=== PATIENT | male | born 1970 | race Hispanic/Latino ===

== ENCOUNTER 2022-07-06 17:38 | Inpatient (IN) | payer BC, OTHER ==
[~2022-07-06] VITALS: Ht 170.2 cm; Wt 81.2 kg
[~2022-07-06 17:38] MED LIST: GLIP5TAB11 PO; LISI5TAB21 PO; METF-446 PO; PRAV40TA3 PO
[2022-07-06] MEDS ORDERED: BIVALIRUDIN 250 MG/VIAL IV ONE (18:13)
[2022-07-06] MEDS ORDERED: IOHEXOL-350 50ML VIAL IV ONE (18:13)
[2022-07-06] MEDS ORDERED: HEPARIN 10,000 UNIT/10ML (1,000 UNIT/ML) VIAL ONE (18:13)
[2022-07-06] MEDS ORDERED: NITROGLYCERIN 50MG VIAL ONE (18:13)
[2022-07-06] MEDS ORDERED: IOHEXOL 350 MG/ML 100ML INFUS..BTL IV ONE (18:13)
[2022-07-06] MEDS ORDERED: LIDOCAINE HCL 400MG/20ML VIAL ONE (18:14)
[2022-07-06] MEDS ORDERED: MEPERIDINE-PF 25 MG/ML SYG ONE (18:19)
[2022-07-06] MEDS ORDERED: MIDAZOLAM HCL 1 MG/ML 2ML VIAL ONE (18:19)
[2022-07-06] MEDS ORDERED: FENTANYL CITRATE PF 50 MCG/1 ML 2ML VIAL ONE (18:21)
[2022-07-06] MEDS ORDERED: 0.9%NACL 1000ML 1,000 ML IV SCH (20:00)
[2022-07-06] MEDS ORDERED: DEXTROSE 50%-WATER 50 ML DISP.SYRIN IV PRN (20:00)
[2022-07-06] MEDS ORDERED: ATOR40TA71 PO (20:58)
[2022-07-06] MEDS ORDERED: BYDUREON (20:58)
[2022-07-06] MEDS ORDERED: MAG/ALUM/SIMETH 30 ML UDCUP PO PRN (21:00)
[2022-07-06] MEDS ORDERED: ONDANSETRON 4MG INJ IV PRN (21:00)
[2022-07-06] MEDS ORDERED: DiphenhydrAMINE HCL 50 MG/ML VIAL IV PRN (21:00)
[2022-07-06] MEDS: METOPROLOL TARTRATE 25 MG TAB PO SCH (21:00)
[2022-07-06] MEDS ORDERED: ACETAMINOPHEN 325 MG TAB PO PRN ×2 (21:00)
[2022-07-06] MEDS ORDERED: HYDROCODONE/ACETAMINOPHEN 5/325 MG TAB PO PRN (21:00)
[2022-07-06] MEDS ORDERED: LACTULOSE 20 GM/30 ML UDCUP PO PRN (21:00)
[2022-07-06] MEDS: INSULIN HUMULIN R 100 UNIT/ML 3ML SQ SCH (21:00)
[2022-07-06 21:02] LABS: BASOPHILS % (AUTO) 0.3 % (0.0-5.0); EOSINOPHILS % (AUTO) 0.2 % (0.0-8.0); HEMATOCRIT 46.6 % (42-54); LYMPHOCYTES % (AUTO) 11.9 % (21.0-51.0); MEAN CORPUSCULAR HEMOGLOBIN 28.7 pg (27.0-33.0); MEAN CORPUSCULAR HGB CONC 33.3 g/dL (32.0-36.0); MEAN CORPUSCULAR VOLUME 86.1 fL (79-99); MONOCYTES % (AUTO) 5.3 % (3.0-13.0); NEUTROPHILS % (AUTO) 81.7 % (40.0-77.0); PLATELET COUNT (AUTO) 263 K/uL (130-400); RED BLOOD CELL COUNT(AUTO) 5.41 MIL/uL (4.50-6.20); WHITE BLOOD COUNT (AUTO) 12.2 K/uL (4.8-10.8)
[2022-07-06 21:21] LABS: B-TYPE NATRIURETIC PEPTIDE 62 pg/mL (0-100)
[2022-07-06 21:24] LABS: CREATININE 1.1 mg/dL (0.5-1.5); POTASSIUM 4.3 mmol/L (3.5-5.1); THYROID STIMULATING HORMONE 0.87 uIU/mL (0.36-3.74)
[2022-07-06] MEDS: MORPHINE 4 MG SYG IV PRN ×2 (22:00→23:33)
[2022-07-06] MEDS ORDERED: HEPARIN 25,000 UNITS/250ML D5W 250 ML IV ONE (22:18)
[2022-07-06] MEDS ORDERED: NITROGLYCERIN 50MG/D5W 250ML 1 BOT ONE (22:19)
[2022-07-06] MEDS ORDERED: FENTANYL CITRATE PF 50 MCG/1 ML 2ML VIAL IVP PRN (22:30)
[2022-07-06] MEDS ORDERED: NITROGLYCERIN 50MG/D5W 250ML 250 BOT IV SCH (22:30)
[2022-07-06] MEDS ORDERED: EMPA25TA PO (22:47)
[2022-07-06] MEDS: FAMOTIDINE 20MG VIAL IV SCH (22:57)
[2022-07-06] MEDS: ATORVASTATIN 40 MG TABLET PO SCH (22:58)
[2022-07-06 23:01] VITALS: BP 103/62
[2022-07-06 23:06] LABS: APPEARANCE,URINE CLEAR (CLEAR); BILIRUBIN,URINE NEGATIVE (NEGATIVE); COLOR,URINE YELLOW (YELLOW); GLUCOSE, URINE (UA) >=1000 mg/dL (NEGATIVE); KETONES,URINE >=80 mg/dL (NEGATIVE); LEUKOCYTE ESTERASE ,URINE NEGATIVE (NEGATIVE); NITRATE,URINE NEGATIVE (NEGATIVE); OCCULT BLOOD,URINE NEGATIVE (NEGATIVE); PROTEIN,URINE NEGATIVE (NEGATIVE); UROBILINOGEN,URINE 0.2 mg/dL (0.2-1.0)
[2022-07-06 23:14] LABS: AMPHET/METH SCREEN,URINE NEGATIVE (NEGATIVE); BARBITURATE SCREEN, URINE NEGATIVE (NEGATIVE); BENZODIAZEPINES SCREEN,URINE NEGATIVE (NEGATIVE); CANNABINOID SCREEN,URINE NEGATIVE (NEGATIVE); COCAINE SCREEN,URINE NEGATIVE (NEGATIVE); PHENCYCLIDINE SCREEN,URINE NEGATIVE (NEGATIVE)
[2022-07-06 23:16] VITALS: BP 102/64
[2022-07-06] MEDS ORDERED: HEPARIN 5,000 UNIT VIAL ONE (23:16)
[2022-07-06 23:21] LABS: RBC,URINE 0-1 /HPF (0-1)
[2022-07-06 23:24] LABS: BACTERIA,URINE None Seen /HPF (None Seen); SQUAMOUS EPITHELIAL CELL,UR Rare /HPF (0-2); WBC,URINE None Seen /HPF (0-1)
[2022-07-06] MEDS ORDERED: HEPARIN 5,000 UNIT VIAL IV ONE (23:30)
[2022-07-06 23:31] VITALS: BP 104/62
[2022-07-06 23:46] VITALS: BP 104/63
[2022-07-07] VITALS (67 sets, daily range): BP systolic 89–113; BP diastolic 47–69
[2022-07-07] MEDS: HEPARIN 25,000 UNITS/250ML D5W 250 ML IV SCH ×2 (01:52→19:18)
[2022-07-07 04:15] LABS: HEMATOCRIT 45.5 % (42-54); MEAN CORPUSCULAR HEMOGLOBIN 28.7 pg (27.0-33.0); MEAN CORPUSCULAR HGB CONC 33.2 g/dL (32.0-36.0); MEAN CORPUSCULAR VOLUME 86.3 fL (79-99); RED BLOOD CELL COUNT(AUTO) 5.27 MIL/uL (4.50-6.20); RED CELL DISTRIBUTION WIDTH 13.1 % (11.0-15.5); WHITE BLOOD COUNT (AUTO) 13.4 K/uL (4.8-10.8)
[2022-07-07 04:35] LABS: CREATININE 0.9 mg/dL (0.5-1.5); POTASSIUM 4.1 mmol/L (3.5-5.1)
[2022-07-07] MEDS: INSULIN HUMULIN R 100 UNIT/ML 3ML SQ SCH ×4 (07:30→21:53)
[2022-07-07] MEDS: FAMOTIDINE 20MG VIAL IV SCH ×2 (08:22→21:51)
[2022-07-07] MEDS: ASPIRIN 81MG CHEW TAB PO SCH (08:47)
[2022-07-07] MEDS: METOPROLOL TARTRATE 25 MG TAB PO SCH ×3 (08:47→21:51)
[2022-07-07] MEDS: ATORVASTATIN 40 MG TABLET PO SCH (21:51)
[2022-07-08] VITALS (47 sets, daily range): BP systolic 87–131; BP diastolic 47–79
[2022-07-08 04:05] LABS: HEMATOCRIT 44.6 % (42-54); MEAN CORPUSCULAR HEMOGLOBIN 29.1 pg (27.0-33.0); MEAN CORPUSCULAR HGB CONC 33.6 g/dL (32.0-36.0); MEAN CORPUSCULAR VOLUME 86.4 fL (79-99); RED BLOOD CELL COUNT(AUTO) 5.16 MIL/uL (4.50-6.20); WHITE BLOOD COUNT (AUTO) 11.9 K/uL (4.8-10.8)
[2022-07-08 04:12] LABS: INR 0.93 (0.85-1.15); PROTHROMBIN TIME 9.9 SEC (9.6-11.6)
[2022-07-08 04:13] LABS: PARTIAL THROMBOPLASTIN TIME 47.1 SEC (26.3-35.5)
[2022-07-08 04:24] LABS: HEMOGLOBIN A1C 10.6 % (4.0-6.0)
[2022-07-08 04:45] LABS: ALBUMIN 3.2 g/dL (3.5-5.0); POTASSIUM 3.6 mmol/L (3.5-5.1); TOTAL PROTEIN, SERUM 6.2 g/dL (6.0-8.3)
[2022-07-08] MEDS: POTASSIUM CHLORIDE 20MEQ/100ML 100 ML IV PRN ×4 (06:53→23:35)
[2022-07-08] MEDS ORDERED: LIDOCAINE HCL-MPF 1% 2ML VIAL IV PRN (07:00)
[2022-07-08] MEDS: INSULIN HUMULIN R 100 UNIT/ML 3ML SQ SCH ×2 (07:30→11:23)
[2022-07-08] MEDS: METOPROLOL TARTRATE 25 MG TAB PO SCH (08:11)
[2022-07-08] MEDS: ASPIRIN 81MG CHEW TAB PO SCH (08:11)
[2022-07-08] MEDS: FAMOTIDINE 20MG VIAL IV SCH (08:11)
[2022-07-08] MEDS ORDERED: KCL 20 MEQ ERTAB PO ONE (08:47)
[2022-07-08] MEDS: CEFAZOLIN SODIUM 1 GM VIAL IVP SCH ×2 (09:00→13:00)
[2022-07-08] MEDS ORDERED: NOREPINEPHRINE BITARTRATE 8 MG in 0.9% NACL 250ML 250 ML IV PRN (09:30)
[2022-07-08] MEDS ORDERED: AMINOCAPROIC ACID 5,000MG VIAL 15,000 MG in 0.9% NACL 500ML IV.SOLN 420 ML IV PRN (09:30)
[2022-07-08] MEDS ORDERED: EPINEPHRINE PF 1MG (1:1,000) 10 MG in 0.9% NACL 250ML 240 ML IV PRN ×2 (09:30→15:00)
[2022-07-08] MEDS ORDERED: PAPAVERINE HCL 30 MG/ML 2ML VIAL ONE (09:50)
[2022-07-08] MEDS ORDERED: CEFAZOLIN SODIUM 1 GM VIAL ONE ×2 (09:50→12:02)
[2022-07-08] MEDS ORDERED: SODIUM BICARB 50MEQ 50ML VIAL 150 ML ONE (09:55)
[2022-07-08] MEDS ORDERED: LIDOCAINE PF 100MG/5ML (2%) SYRINGE 5ML ONE ×2 (09:57→12:37)
[2022-07-08] MEDS ORDERED: 0.9%NACL 1000ML 1,000 ML IV ONE ×2 (12:02→14:32)
[2022-07-08] MEDS ORDERED: PROTAMINE SULFATE 10 MG/ML 25ML VIAL IV ONE (12:36)
[2022-07-08] MEDS ORDERED: ESMOLOL HCL 10 MG/ML 10 ML VIAL ONE (12:36)
[2022-07-08] MEDS ORDERED: SODIUM BICARB 50MEQ 50ML VIAL 100 ML ONE (12:37)
[2022-07-08] MEDS ORDERED: EPINEPHRINE PF 1MG (1:1,000) 1 MG/ML AMP ONE (12:37)
[2022-07-08] MEDS ORDERED: AMINOCAPROIC ACID 5,000MG VIAL ONE (12:37)
[2022-07-08] MEDS ORDERED: NOREPINEPHRINE BITARTRATE 1 MG/1 ML ML IV ONE (12:37)
[2022-07-08] MEDS ORDERED: FENTANYL CITRATE PF 50 MCG/1 ML 20ML VIAL IJ ONE (12:37)
[2022-07-08] MEDS ORDERED: PROPOFOL 10 MG/ML 20ML VIAL IV ONE (12:37)
[2022-07-08] MEDS ORDERED: MIDAZOLAM HCL 1 MG/ML 2ML VIAL ONE (12:37)
[2022-07-08] MEDS ORDERED: HEPARIN 10,000 UNIT/10ML (1,000 UNIT/ML) VIAL ONE ×2 (12:37→13:25)
[2022-07-08] MEDS ORDERED: ROCURONIUM 10MG/1ML SYR 10 MG/ML ML ONE ×2 (12:38→13:52)
[2022-07-08] MEDS ORDERED: ETOMIDATE 20MG VIAL ONE (12:43)
[2022-07-08] MEDS ORDERED: AMIODARONE 150MG VIAL ONE (12:58)
[2022-07-08 13:20] LABS: ABG BASE EXCESS -8.9 mmol/L (-2.0-3.0); ABG HCO3 16.4 mmol/L (21.0-28.0); ABG OXYGEN SATURATION 99.6 % (95.0-99.0); ABG PCO2 34 mmHg (35-48)
[2022-07-08] MEDS ORDERED: SODIUM BICARB 50MEQ 50ML VIAL 350 ML ONE (13:25)
[2022-07-08] MEDS ORDERED: SODIUM BICARB 50MEQ 50ML VIAL 50 ML ONE (13:26)
[2022-07-08 13:56] LABS: ABG BASE EXCESS -2.2 mmol/L (-2.0-3.0); ABG HCO3 22.5 mmol/L (21.0-28.0); ABG OXYGEN SATURATION 99.6 % (95.0-99.0); ABG PCO2 39 mmHg (35-48)
[2022-07-08 14:23] LABS: ABG BASE EXCESS 0.2 mmol/L (-2.0-3.0); ABG HCO3 24.4 mmol/L (21.0-28.0); ABG OXYGEN SATURATION 99.4 % (95.0-99.0); ABG PCO2 38 mmHg (35-48)
[2022-07-08 14:53] LABS: ABG BASE EXCESS 0.6 mmol/L (-2.0-3.0); ABG HCO3 25.1 mmol/L (21.0-28.0); ABG OXYGEN SATURATION 91.1 % (95.0-99.0); ABG PCO2 40 mmHg (35-48)
[2022-07-08] MEDS ORDERED: ACETAMINOPHEN 650 MG SUPPOSITORY RC PRN (15:00)
[2022-07-08] MEDS ORDERED: AMINOCAPROIC ACID 5,000MG VIAL 15,000 MG in 0.9% NACL 250ML 250 ML IV SCH (15:00)
[2022-07-08] MEDS ORDERED: 0.9%NACL 1000ML 1,000 ML IV SCH (15:00)
[2022-07-08] MEDS ORDERED: INSULIN REGULAR, HUMAN 3ML 100 UNIT in 0.9%NACL 100ML 99 ML IV SCH ×2 (15:00)
[2022-07-08] MEDS ORDERED: GLUCAGON 1MG KIT 1 MG ML IM PRN (15:00)
[2022-07-08] MEDS ORDERED: DEXTROSE 50%-WATER 50 ML DISP.SYRIN IV PRN (15:00)
[2022-07-08] MEDS ORDERED: 0.9%NACL 10ML VIAL IVP PRN (15:00)
[2022-07-08] MEDS ORDERED: POTASSIUM PHOS 15 mMOL+NS250ML 250 ML IV PRN (15:00)
[2022-07-08] MEDS ORDERED: ONDANSETRON 4MG INJ IV PRN (15:00)
[2022-07-08] MEDS ORDERED: MORPHINE 2 MG SYG IV PRN (15:00)
[2022-07-08] MEDS ORDERED: NITROGLYCERIN 50MG/D5W 250ML 250 BOT IV SCH (15:00)
[2022-07-08] MEDS ORDERED: ALBUMIN (HUMAN) 5% 250 ML IV PRN (15:00)
[2022-07-08] MEDS ORDERED: PROPOFOL 1000 MG/100 ML 100 ML IV PRN (15:00)
[2022-07-08] MEDS ORDERED: MORPHINE 4 MG SYG IV PRN (15:00)
[2022-07-08] MEDS ORDERED: NOREPINEPHRIN 4MG/NS 250ML 250 ML IV PRN (15:00)
[2022-07-08] MEDS ORDERED: ACETAMINOPHEN 325 MG TAB PO PRN (15:00)
[2022-07-08] MEDS ORDERED: POTASSIUM CHLORIDE 20MEQ/100ML 100 ML IV ONE (15:38)
[2022-07-08 15:48] LABS: ABG BASE EXCESS -4.4 mmol/L (-2.0-3.0); ABG HCO3 20.7 mmol/L (21.0-28.0); ABG OXYGEN SATURATION 92.6 % (95.0-99.0); ABG PCO2 38 mmHg (35-48)
[2022-07-08] MEDS ORDERED: SODIUM BICARB 50MEQ 50ML VIAL 300 ML ONE (15:52)
[2022-07-08] MEDS ORDERED: ASPIRIN 81MG CHEW TAB NG ONE (16:00)
[2022-07-08 16:11] LABS: ABG BASE EXCESS 0.6 mmol/L (-2.0-3.0); ABG HCO3 24.7 mmol/L (21.0-28.0); ABG OXYGEN SATURATION 88.5 % (95.0-99.0); ABG PCO2 38 mmHg (35-48)
[2022-07-08 17:02] LABS: HEMATOCRIT 35.4 % (42-54); MEAN CORPUSCULAR HGB CONC 33.9 g/dL (32.0-36.0); MEAN CORPUSCULAR VOLUME 85.5 fL (79-99); RED BLOOD CELL COUNT(AUTO) 4.14 MIL/uL (4.50-6.20)
[2022-07-08 17:07] LABS: ABG BASE EXCESS -3.8 mmol/L (-2.0-3.0); ABG HCO3 19.4 mmol/L (21.0-28.0); ABG OXYGEN SATURATION 98.4 % (95.0-99.0); ABG PCO2 30 mmHg (35-48)
[2022-07-08] MEDS: SODIUM BICARB 50MEQ 50ML VIAL IV PRN ×5 (17:11→20:21)
[2022-07-08 17:12] LABS: INR 1.23 (0.85-1.15); PROTHROMBIN TIME 13.2 SEC (9.6-11.6)
[2022-07-08 17:13] LABS: MAGNESIUM 1.4 mg/dL (1.80-2.40); PHOSPHORUS 5.7 mg/dL (2.5-4.9); POTASSIUM 3.8 mmol/L (3.5-5.1)
[2022-07-08 17:14] LABS: PARTIAL THROMBOPLASTIN TIME 20.8 SEC (26.3-35.5)
[2022-07-08] MEDS: MAGNESIUM 2GM PREMIX 50ML 50 ML IV PRN (17:41)
[2022-07-08] MEDS ORDERED: ALBUMIN (HUMAN) 5% 250 ML IV ONE (18:16)
[2022-07-08 18:20] LABS: ABG BASE EXCESS -4.8 mmol/L (-2.0-3.0); ABG HCO3 19.3 mmol/L (21.0-28.0); ABG OXYGEN SATURATION 96.9 % (95.0-99.0); ABG PCO2 33 mmHg (35-48)
[2022-07-08 18:25] LABS: ABG OXYGEN SATURATION 71.9 % (95.0-99.0); BASE EXCESS,VENOUS BLOOD GAS -6.2 (-2.0-3.0); HCO3,VENOUS BLOOD GAS 18.4 (21.0-28.0); PCO2,VENOUS BLOOD GAS 33 (35-48); PH,VENOUS BLOOD GAS 7.362 (7.350-7.450)
[2022-07-08] MEDS ORDERED: ALBUMIN (HUMAN) 5% 250 ML IV SCH (18:30)
[2022-07-08] MEDS ORDERED: AMIODARONE 900MG VIAL 150 MG in DEXTROSE 5%-WATER 100 ML IV SCH (19:00)
[2022-07-08] MEDS ORDERED: NOREPINEPHRIN 8MG/250ML NS PMX 250 ML IV ONE (19:02)
[2022-07-08] MEDS: 0.9% NACL 500ML IV.SOLN 500 ML IV SCH ×2 (19:06→19:40)
[2022-07-08] MEDS ORDERED: AMIODARONE 900MG VIAL 360 MG in DEXTROSE 5%-WATER 200 ML IV SCH (19:30)
[2022-07-08] MEDS: CEFAZOLIN SODIUM 1 GM VIAL IV SCH (20:06)
[2022-07-08 20:14] LABS: ABG BASE EXCESS -2.2 mmol/L (-2.0-3.0); ABG HCO3 21.2 mmol/L (21.0-28.0); ABG OXYGEN SATURATION 97.1 % (95.0-99.0); ABG PCO2 32 mmHg (35-48)
[2022-07-08] MEDS: CALCIUM GLUC 1GM 1 GM in 0.9%NACL 50ML 50 ML IV PRN (20:22)
[2022-07-08] MEDS ORDERED: FAMOTIDINE 20MG VIAL IV SCH (21:00)
[2022-07-08 21:27] LABS: ABG BASE EXCESS 1.6 mmol/L (-2.0-3.0); ABG HCO3 25.2 mmol/L (21.0-28.0); ABG OXYGEN SATURATION 97.4 % (95.0-99.0); ABG PCO2 36 mmHg (35-48)
[2022-07-08] MEDS: TRAMADOL HCL 50 MG TABLET PO PRN (21:51)
[2022-07-08 23:31] LABS: ABG BASE EXCESS 5.1 mmol/L (-2.0-3.0); ABG HCO3 29.3 mmol/L (21.0-28.0); ABG OXYGEN SATURATION 97.3 % (95.0-99.0); ABG PCO2 41 mmHg (35-48)
[2022-07-08] MEDS: ATORVASTATIN 40 MG TABLET PO SCH (23:36)
[2022-07-09] VITALS (84 sets, daily range): BP systolic 90–251; BP diastolic 47–247
[2022-07-09] MEDS: AMIODARONE 900MG VIAL 540 MG in DEXTROSE 5%-WATER 300 ML IV SCH ×2 (02:15→20:22)
[2022-07-09] MEDS: TRAMADOL HCL 50 MG TABLET PO PRN ×4 (03:18→20:04)
[2022-07-09 03:45] LABS: HEMATOCRIT 31.5 % (42-54); MEAN CORPUSCULAR HEMOGLOBIN 28.6 pg (27.0-33.0); MEAN CORPUSCULAR HGB CONC 33.3 g/dL (32.0-36.0); MEAN CORPUSCULAR VOLUME 85.8 fL (79-99); RED BLOOD CELL COUNT(AUTO) 3.67 MIL/uL (4.50-6.20); RED CELL DISTRIBUTION WIDTH 13.2 % (11.0-15.5); WHITE BLOOD COUNT (AUTO) 16.1 K/uL (4.8-10.8)
[2022-07-09 03:59] LABS: INR 1.04 (0.85-1.15); PROTHROMBIN TIME 11.3 SEC (9.6-11.6)
[2022-07-09 04:01] LABS: PARTIAL THROMBOPLASTIN TIME 27.4 SEC (26.3-35.5)
[2022-07-09 04:04] LABS: MAGNESIUM 1.7 mg/dL (1.80-2.40); PHOSPHORUS 3.2 mg/dL (2.5-4.9); POTASSIUM 3.5 mmol/L (3.5-5.1)
[2022-07-09] MEDS: CEFAZOLIN SODIUM 1 GM VIAL IV SCH ×2 (04:07→12:27)
[2022-07-09] MEDS: MAGNESIUM 2GM PREMIX 50ML 50 ML IV PRN ×2 (04:45→18:10)
[2022-07-09] MEDS: POTASSIUM CHLORIDE 20MEQ/100ML 100 ML IV PRN ×3 (04:46→18:10)
[2022-07-09 04:51] LABS: ABG BASE EXCESS 3.5 mmol/L (-2.0-3.0); ABG HCO3 27.7 mmol/L (21.0-28.0); ABG OXYGEN SATURATION 90.3 % (95.0-99.0); ABG PCO2 41 mmHg (35-48)
[2022-07-09] MEDS: CALCIUM GLUC 1GM 1 GM in 0.9%NACL 50ML 50 ML IV PRN (06:35)
[2022-07-09] MEDS: ASPIRIN 81MG CHEW TAB PO SCH (08:05)
[2022-07-09] MEDS: FAMOTIDINE 20MG TAB PO SCH ×2 (08:06→19:39)
[2022-07-09 17:37] LABS: MAGNESIUM 1.8 mg/dL (1.80-2.40); POTASSIUM 3.4 mmol/L (3.5-5.1)
[2022-07-09 19:10] LABS: OPIATES SCREEN URINE Positive ng/mL (Cutoff=300)
[2022-07-09] MEDS: METOPROLOL TARTRATE 25 MG TAB PO SCH (19:38)
[2022-07-09] MEDS: ATORVASTATIN 40 MG TABLET PO SCH (19:38)
[2022-07-10] VITALS (17 sets, daily range): BP systolic 106–130; BP diastolic 66–86
[2022-07-10] MEDS: TRAMADOL HCL 50 MG TABLET PO PRN ×3 (01:34→21:49)
[2022-07-10 04:28] LABS: HEMATOCRIT 28.3 % (42-54); MEAN CORPUSCULAR HEMOGLOBIN 29.2 pg (27.0-33.0); MEAN CORPUSCULAR HGB CONC 32.9 g/dL (32.0-36.0); RED BLOOD CELL COUNT(AUTO) 3.18 MIL/uL (4.50-6.20); RED CELL DISTRIBUTION WIDTH 13.7 % (11.0-15.5); WHITE BLOOD COUNT (AUTO) 13.8 K/uL (4.8-10.8)
[2022-07-10 04:41] LABS: CREATININE 0.9 mg/dL (0.5-1.5); POTASSIUM 3.2 mmol/L (3.5-5.1)
[2022-07-10] MEDS: POTASSIUM CHLORIDE 20MEQ/100ML 100 ML IV PRN ×2 (04:50→06:22)
[2022-07-10] MEDS: INSULIN HUMULIN R 100 UNIT/ML 3ML SQ SCH ×4 (07:17→21:00)
[2022-07-10] MEDS: FAMOTIDINE 20MG TAB PO SCH ×2 (09:00→21:49)
[2022-07-10] MEDS: ASPIRIN 81MG CHEW TAB PO SCH (09:00)
[2022-07-10] MEDS: POLYETHYLENE GLYCOL 3350 17 GM POWD.PACK PO SCH (09:00)
[2022-07-10] MEDS: METOPROLOL TARTRATE 25 MG TAB PO SCH ×2 (09:00→21:49)
[2022-07-10] MEDS: ATORVASTATIN 40 MG TABLET PO SCH (21:51)
[2022-07-11 03:43] LABS: HEMATOCRIT 29.3 % (42-54); MEAN CORPUSCULAR HEMOGLOBIN 28.9 pg (27.0-33.0); MEAN CORPUSCULAR HGB CONC 33.4 g/dL (32.0-36.0); MEAN CORPUSCULAR VOLUME 86.4 fL (79-99); RED BLOOD CELL COUNT(AUTO) 3.39 MIL/uL (4.50-6.20); RED CELL DISTRIBUTION WIDTH 13.2 % (11.0-15.5)
[2022-07-11 03:53] LABS: POTASSIUM 3.2 mmol/L (3.5-5.1)
[2022-07-11 04:52] VITALS: BP 112/72
[2022-07-11] MEDS: INSULIN HUMULIN R 100 UNIT/ML 3ML SQ SCH ×4 (06:23→20:41)
[2022-07-11 06:40] VITALS: BP 122/84
[2022-07-11] MEDS: METOPROLOL TARTRATE 25 MG TAB PO SCH ×2 (07:30→20:36)
[2022-07-11] MEDS: FAMOTIDINE 20MG TAB PO SCH ×2 (07:30→20:36)
[2022-07-11] MEDS: ASPIRIN 81MG CHEW TAB PO SCH (07:30)
[2022-07-11] MEDS: TRAMADOL HCL 50 MG TABLET PO PRN ×3 (07:30→20:37)
[2022-07-11 07:54] LABS: ABG BASE EXCESS -9.6 mmol/L (-2.0-3.0); ABG HCO3 13.3 mmol/L (21.0-28.0); ABG OXYGEN SATURATION 96.5 % (95.0-99.0); ABG PCO2 23 mmHg (35-48)
[2022-07-11] MEDS: ENOXAPARIN SODIUM 30 MG/0.3 ML SQ SCH (08:52)
[2022-07-11] MEDS: POLYETHYLENE GLYCOL 3350 17 GM POWD.PACK PO SCH (08:54)
[2022-07-11] MEDS ORDERED: POTASSIUM CHLORIDE 20MEQ/100ML 100 ML IV PRN (09:00)
[2022-07-11] MEDS ORDERED: LIDOCAINE HCL-MPF 1% 2ML VIAL IV PRN (09:00)
[2022-07-11] MEDS ORDERED: POTASSIUM CHLORIDE 10% ELIXIR 20 MEQ/15 ML UDCUP PO PRN (09:00)
[2022-07-11] MEDS: KCL 20 MEQ ERTAB PO PRN ×4 (09:45→17:32)
[2022-07-11] MEDS ORDERED: FUROSEMIDE 20 MG TABLET PO SCH (10:00)
[2022-07-11 12:03] VITALS: BP 130/68
[2022-07-11 16:15] VITALS: BP 117/68
[2022-07-11] MEDS: FUROSEMIDE 20 MG TABLET PO SCH (16:59)
[2022-07-11 20:01] VITALS: BP 112/71
[2022-07-11] MEDS: ATORVASTATIN 40 MG TABLET PO SCH (20:36)
[2022-07-12 00:03] VITALS: BP 101/66
[2022-07-12] MEDS ORDERED: BENZOCAINE/MENTH/CETYLPYRD CL 1 EACH LOZENGE MM PRN (03:30)
[2022-07-12 03:43] LABS: HEMATOCRIT 30.3 % (42-54); MEAN CORPUSCULAR HEMOGLOBIN 28.7 pg (27.0-33.0); MEAN CORPUSCULAR HGB CONC 33.7 g/dL (32.0-36.0); MEAN CORPUSCULAR VOLUME 85.1 fL (79-99); RED BLOOD CELL COUNT(AUTO) 3.56 MIL/uL (4.50-6.20); RED CELL DISTRIBUTION WIDTH 13.3 % (11.0-15.5); WHITE BLOOD COUNT (AUTO) 11.7 K/uL (4.8-10.8)
[2022-07-12 03:47] VITALS: BP 110/67
[2022-07-12] MEDS: KCL 20 MEQ ERTAB PO PRN ×5 (05:20→21:07)
[2022-07-12] MEDS: INSULIN HUMULIN R 100 UNIT/ML 3ML SQ SCH ×4 (07:13→21:01)
[2022-07-12 08:33] VITALS: BP 119/74
[2022-07-12] MEDS: ENOXAPARIN SODIUM 30 MG/0.3 ML SQ SCH (08:48)
[2022-07-12] MEDS: KCL 20 MEQ ERTAB PO SCH (08:48)
[2022-07-12] MEDS: POLYETHYLENE GLYCOL 3350 17 GM POWD.PACK PO SCH (08:49)
[2022-07-12] MEDS: ASPIRIN 81MG CHEW TAB PO SCH (08:49)
[2022-07-12] MEDS: METOPROLOL TARTRATE 25 MG TAB PO SCH ×2 (08:49→21:07)
[2022-07-12] MEDS: LISINOPRIL 5 MG TABLET PO SCH (08:50)
[2022-07-12] MEDS: FAMOTIDINE 20MG TAB PO SCH ×2 (08:50→21:07)
[2022-07-12] MEDS: FUROSEMIDE 20 MG TABLET PO SCH ×2 (08:50→17:21)
[2022-07-12] MEDS: CLOPIDOGREL 75MG TAB PO SCH (09:40)
[2022-07-12 12:01] VITALS: BP 101/61
[2022-07-12 16:00] VITALS: BP 106/69
[2022-07-12] MEDS: TRAMADOL HCL 50 MG TABLET PO PRN ×2 (17:26→21:07)
[2022-07-12 19:29] VITALS: BP 112/69
[2022-07-12] MEDS: ATORVASTATIN 40 MG TABLET PO SCH (21:07)
[2022-07-13 00:10] VITALS: BP 102/64
[2022-07-13 03:33] LABS: HEMATOCRIT 31.2 % (42-54); MEAN CORPUSCULAR HEMOGLOBIN 28.6 pg (27.0-33.0); MEAN CORPUSCULAR VOLUME 84.3 fL (79-99); RED BLOOD CELL COUNT(AUTO) 3.7 MIL/uL (4.50-6.20); RED CELL DISTRIBUTION WIDTH 13.2 % (11.0-15.5); WHITE BLOOD COUNT (AUTO) 10.5 K/uL (4.8-10.8)
[2022-07-13 03:45] VITALS: BP 96/67
[2022-07-13 03:55] LABS: ALBUMIN 2.2 g/dL (3.5-5.0); CREATININE 0.9 mg/dL (0.5-1.5); POTASSIUM 3.2 mmol/L (3.5-5.1); TOTAL PROTEIN, SERUM 6.2 g/dL (6.0-8.3)
[2022-07-13] MEDS: INSULIN HUMULIN R 100 UNIT/ML 3ML SQ SCH ×2 (05:56→10:46)
[2022-07-13 06:00] VITALS: BP 103/68
[2022-07-13] MEDS: KCL 20 MEQ ERTAB PO PRN ×2 (06:01→10:36)
[2022-07-13 07:10] VITALS: BP 99/70
[2022-07-13] MEDS ORDERED: ATOR40TA71 PO (07:34)
[2022-07-13] MEDS ORDERED: METO25 PO (07:34)
[2022-07-13] MEDS ORDERED: FURO20TA6 PO (07:34)
[2022-07-13] MEDS ORDERED: ASPI-1005 PO (07:34)
[2022-07-13] MEDS ORDERED: LISI5TAB21 PO (07:34)
[2022-07-13] MEDS ORDERED: EMPA25TA PO (07:34)
[2022-07-13] MEDS ORDERED: CLOP75TA14 PO (07:34)
[2022-07-13] MEDS ORDERED: INSU3INS3 SQ (07:34)
[2022-07-13] MEDS ORDERED: PEN-105 MC (07:34)
[2022-07-13] MEDS ORDERED: METF-446 PO (07:34)
[2022-07-13] MEDS ORDERED: METFORMIN HCL 500 MG TABLET PO SCH (08:00)
[2022-07-13] MEDS: METOPROLOL TARTRATE 25 MG TAB PO SCH (08:28)
[2022-07-13] MEDS: ASPIRIN 81MG CHEW TAB PO SCH (08:28)
[2022-07-13] MEDS: POLYETHYLENE GLYCOL 3350 17 GM POWD.PACK PO SCH (08:28)
[2022-07-13] MEDS: FAMOTIDINE 20MG TAB PO SCH (08:28)
[2022-07-13] MEDS: CLOPIDOGREL 75MG TAB PO SCH (08:28)
[2022-07-13] MEDS: ENOXAPARIN SODIUM 30 MG/0.3 ML SQ SCH (08:29)
[2022-07-13] MEDS: KCL 20 MEQ ERTAB PO SCH (08:32)
[2022-07-13] MEDS ORDERED: NON-FORMULARY MEDICATION 1 EACH (Metformin HCl 1,000 MG) PO SCH (09:00)
[2022-07-13] MEDS: LISINOPRIL 5 MG TABLET PO SCH (09:55)
[2022-07-13 10:00] VITALS: BP 101/66
[2022-07-13 11:00] VITALS: BP 98/58
[2022-07-13] MEDS ORDERED: INSULIN GLARGINE 100 UNITS/ML 10 ML VIAL SQ SCH (21:00)
== END 2022-07-13 12:45 | disposition home or self-care (01) | DRG 233 ==
LOC: EDHIP 17:55 → 2DH 18:36 → 2CH 22:55 → 2CV 07-08 12:35 → 2BH 07-09 06:22 → 2DH 07-10 10:29
PROVIDERS: ADMIT Internal Medicine; ATTEND Internal Medicine
PROC: 4A023N7 Measurement of Cardiac Sampling and Pressure, Left Heart, Percutaneous Approach (ICD-10-PCS; principal; 2022-07-06)
PROC: B2111ZZ Fluoroscopy of Multiple Coronary Arteries using Low Osmolar Contrast (ICD-10-PCS; 2022-07-06)
PROC: B2151ZZ Fluoroscopy of Left Heart using Low Osmolar Contrast (ICD-10-PCS; 2022-07-06)
PROC: B41F1ZZ Fluoroscopy of Right Lower Extremity Arteries using Low Osmolar Contrast (ICD-10-PCS; 2022-07-06)
PROC: 02100Z9 Bypass Coronary Artery, One Artery from Left Internal Mammary, Open Approach (ICD-10-PCS; 2022-07-08)
PROC: 0PH000Z Insertion of Rigid Plate Internal Fixation Device into Sternum, Open Approach (ICD-10-PCS; 2022-07-08)
PROC: 0212093 Bypass Coronary Artery, Three Arteries from Coronary Artery with Autologous Venous Tissue, Open Approach (ICD-10-PCS; 2022-07-08 12:40)
PROC: 06BQ4ZZ Excision of Left Saphenous Vein, Percutaneous Endoscopic Approach (ICD-10-PCS; 2022-07-08 12:40)
DX: I21.4 Non-ST elevation (NSTEMI) myocardial infarction (principal); I50.21 Acute systolic (congestive) heart failure; J95.1 Acute pulmonary insufficiency following thoracic surgery; I25.110 Atherosclerotic heart disease of native coronary artery with unstable angina pectoris; Z20.822 Contact with and (suspected) exposure to COVID-19; E11.65 Type 2 diabetes mellitus with hyperglycemia; E78.5 Hyperlipidemia, unspecified; I11.0 Hypertensive heart disease with heart failure; D64.9 Anemia, unspecified; D72.829 Elevated white blood cell count, unspecified; I25.5 Ischemic cardiomyopathy; Y83.8 Other surgical procedures as the cause of abnormal reaction of the patient, or of later complication, without mention of misadventure at the time of the procedure; Y82.8 Other medical devices associated with adverse incidents; E78.00 Pure hypercholesterolemia, unspecified; E87.6 Hypokalemia; I25.2 Old myocardial infarction; Z79.4 Long term (current) use of insulin; Z79.82 Long term (current) use of aspirin; Z79.84 Long term (current) use of oral hypoglycemic drugs; Z79.899 Other long term (current) drug therapy; Z82.49 Family history of ischemic heart disease and other diseases of the circulatory system; Z82.5 Family history of asthma and other chronic lower respiratory diseases; Z83.3 Family history of diabetes mellitus; Z95.1 Presence of aortocoronary bypass graft
CPT/HCPCS: 36415; 36600; 71045; 80048; 80053; 80061; 80305; 81001; 82435; 82550; 82803; 82947; 82948; 83036; 83605; 83735; 83874; 83880; 84100; 84132; 84295; 84443; 84484; 85018; 85025; 85027; 85347; 85610; 85730; 86850; 86900; 86901; 86923; 87635; 93005; 93306; 93308; 93356; 93458; 93880; 94002; 94010; 94150; 97039; 99156; 99157; A7048; C1760; C1894; G0378; J0171; J0282; J0583; J0610; J0690; J1644; J1650; J1815; J2001; J2175; J2250; J2270; J2440; J2704; J2720; J3010; J3475; J3480; J3490; J7030; J7040; J7060; J7070; J7120; P9045; Q9967